=== PATIENT | female | born 1965 | race Caucasian/White ===

== ENCOUNTER 2016-12-24 11:15 | Emergency (ER) | payer OTHER ==
[~2016-12-24] VITALS: Ht 157.5 cm; Wt 63.0 kg
[~2016-12-24 11:15] MED LIST: ATIVAN1 MG PO
--- NOTE | 2016-12-24 12:01 | ED NEURO DEFICIT/STROKE ---
History of Present Illness General Chief Complaint: Upper Extremity Problem Stated Complaint: R AND L ARM WEAKNESS Source: patient Exam Limitations: no limitations Vital Signs & Intake/Output Vital Signs & Intake/Output Vital Signs Date Time Temp Pulse Resp B/P Pulse O2 O2 Flow FiO2 Ox Delivery Rate 12/24 1920 97.1 65 16 146/68 98 Room Air 12/24 1838 97.2 60 18 122/76 100 Room Air 12/24 1536 97.0 60 18 120/76 100 Room Air 12/24 1355 96.6 58 16 120/76 100 Room Air 12/24 1203 97 12/24 1126 97.6 62 18 155/89 99 Room Air Allergies Coded Allergies: Penicillins (Intermediate, RASH 12/24/16) Reconcile Medications Clonazepam 1 MG TABLET 1 TAB PO BIDP PRN ANXIETY (Reported) Gabapentin 300 MG CAPSULE 1 CAP PO QPM CERVICAL RADICULOPATHY Methylprednisolone. (Medrol) 4 MG TAB.DS.PK 1 DP PO AD neck pain 6 on day 1 then reduce by one tablet daily until gone Quetiapine Fumarate 25 MG TABLET 1 TAB PO QPM SLEEP (Reported) Sertraline HCl 100 MG TABLET 1 TAB PO DAILY DEPRESSION (Reported) Valsartan/Hydrochlorothiazide (Valsartan-Hctz 160-12.5 MG Tab) 160 MG-12.5 MG TABLET 1 TAB PO DAILY HEART (Reported) Triage Note: 51 Y/O FEMALE C/O BILATERAL ARM "ACHING AND THEYRE ASLEEP" X 1 WEEK; WORSENING OVER THE LAST FEW DAYS. PT STATES SHE IS LEFT HANDED AND HAS BEEN NOTICING SHE HAS BEEN DROPPING THINGS. PT STATES SHE SAW DR PRYOR AND HE SENT HER TO ED FOR EVAL OF "? HEAD VERSUS NECK PATHOLOGY ... CT/MRI" - PER PT, DR PRYOR SPOKE WITH DR MENDOZA. PT SPEAKING CLEARLY WITH NO DEFICITS NOTED Triage Nurses Notes Reviewed? yes Onset: Abrupt Duration: week(s): (2), getting worse Timing: recent history Severity: moderate, severe New Weakness: RLE, LUE Vision Problem? No Glaucoma? No HPI: 51-year-old female comes into emergency room with complaints of numbness and weakness to her bilateral upper extremities. Symptoms of a going on for the past 2 weeks getting progressively worse. Patient reports that the numbness starts from the left side of her upper arm and the right side of her upper arm and progresses all the way down to her fingertips. Patient reports that she's been feeling weak in her arms and inability to grasp things. Denies any headache. Denies any neck pain. Denies any trauma. Denies any prior history of this ever happening in the past. Denies any other associated symptoms. Nothing seems to make the symptoms better or worse. Patient went to see her primary care Dr. Pryor who wanted her to come to the hospital to be further evaluated. Denies any chest pain shortness of breath. Generally fatigued and tired. (TOE HERNANDEZ) Past History Travel History Traveled to [place] past 21 day No Medical History Any Pertinent Medical History? 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 No (TEO HERNANDEZ) Review of Systems Review of Systems Constitutional: Reports: no symptoms. EENTM: Reports: no symptoms. Respiratory: Reports: no symptoms. Cardiovascular: Reports: no symptoms. GI: Reports: no symptoms. Genitourinary: Reports: no symptoms. Musculoskeletal: Reports: see HPI. Skin: Reports: no symptoms. Neurological/Psychological: Reports: see HPI. Hematologic/Endocrine: Reports: no symptoms. Immunologic/Allergic: Reports: no symptoms. All Other Systems: Reviewed and Negative (TEO HERNANDEZ) Physical Exam Physical Exam General Appearance: well developed/nourished, no apparent distress, alert, awake Head: atraumatic, normal appearance Eyes: Bilateral: normal appearance, PERRL, EOMI. Ears, Nose, Throat: normal ENT inspection, moist mucous membrane, hearing grossly normal Neck: normal inspection, supple, full range of motion Respiratory: normal breath sounds, chest non-tender, no respiratory distress Cardiovascular: regular rate/rhythm Gastrointestinal: soft Back: normal inspection, normal range of motion Extremities: normal range of motion Psychiatric: awake, alert, oriented x 3 Cranial Nerves: normal hearing, normal speech, PERRL Coordination/Gait: normal gait Motor/Sensory: 3-5 strength bilateral upper extremities, patient not able to distinguish between sharp and dull on hands but able to distinguish between sharp and dull on forearm and upper arms reflexes 2+ bilaterally in upper extremities Skin: intact, normal color Core Measures CVA/TIA Diagnosis: No Severe Sepsis Present: No Septic Shock Present: No (TEO HERNANDEZ) Progress Differential Diagnosis: acute glaucoma, Johnson's Palsy, drug intoxication, electrolyte imbalance, encephalitis, hypoglycemia, intracranial Hem., intracranial mass/tumor, meningitis, migraine GUALLPA, seizure disorder, stroke, subarachnoid Hem., vertebrobasilar insuff., Lyme disease, cervical cord compression, myositis, Plan of Care: Orders Procedure Date/time Status Regular Diet 12/25 B Active Add-on Test (ER Only) 12/24 1201 Active VITAMIN D1,25 DIHYDROXY Ref$ 12/24 1200 Active VDRL 12/24 1200 Active TROPONIN LEVEL 12/24 1200 Complete LYME TITRE 12/24 1200 Active COMPREHENSIVE METABOLIC PANEL 12/24 1200 Complete CBC WITHOUT DIFFERENTIAL 12/24 1200 Complete VITAMIN B12 12/24 1200 Complete EKG 12/24 1200 Active Laboratory Tests 12/24/16 1217: Anion Gap 11, Estimated GFR > 60, BUN/Creatinine Ratio 22.2, Glucose 92, Calcium 9.6, Total Bilirubin 0.4, AST 21, ALT 21, Alkaline Phosphatase 80, Troponin I < 0.01, Total Protein 7.2, Albumin 4.3, Globulin 2.9, Albumin/Globulin Ratio 1.5, Vitamin B12 514 12/24/16 1217: Vit D 1,25-Dihyd Total Pending, 1,25 Dihydroxy Vit D2 Pending, 1,25 Dihydroxy Vit D3 Pending, CBC w Diff NO MAN DIFF REQ, RBC 4.45, MCV 85.1, MCH 28.6, RDW 12.8, MPV 10.1, Gran % 60.6, Lymphocytes % 28.9, Monocytes % 7.4, Eosinophils % 1.8, Basophils % 1.3, Absolute Granulocytes 4.6, Absolute Lymphocytes 2.2, Absolute Monocytes 0.6, Absolute Eosinophils 0.1, Absolute Basophils 0.1, PUBS MCHC 33.6, RPR Titer/FTA NONREACTIVE, Lyme Disease Antibody Pending Diagnostic Imaging: Viewed by Me: MRI. Discussed w/RAD: MRI. Radiology Impression: EXAM TYPE: MRI - MRI-CERVICAL W & W/O DAVID; MRI-HEAD W & W/ O DAVID EXAMINATION: MRI BRAIN AN MRI CERVICAL SPINE WITHOUT CONTRAST. CLINICAL INFORMATION: Bilateral upper extremity weakness. COMPARISON: None. TECHNIQUE: Routine MRI sequences of brain were obtained. Routine sagittal and axial T1 and T2 sequences of cervical spine were obtained. FINDINGS: BRAIN: There is no restricted diffusion to suggest any acute ischemia or acute demyelination. There is no intracranial flow-voids signal seen on gradient echo sequences to suggest any acute intra-axial or extra-axial bleed. There are no T2-weighted signal changes or edema on the FLAIR sequence either. The lateral ventricles are symmetrical and enlarged without ventriculomegaly. There is normal flow void signal seen in the major cerebral vasculature. CERVICAL SPINE: There is normal cervical lordosis. The vertebral heights, alignment an the disc heights are normal. The disc signal is preserved. The C2-C3, C3-C4 and C4-C5 disc levels are unremarkable. At C5-C6 disc level there is mild posterior spondylosis mildly narrowing the right neural foramina. There is no spondylolysis stenosis. The left neural foramina is patent. At C6-C7 disc level there is a left paracentral disc herniation/osteophyte complex indenting the left ventral thecal sac and ventral cord. The neural foramina however are widely patent. The C7-T1 disc level appears unremarkable. The bone marrow signal, cord signal, cord caliber and cervical-medullary junction is normal. IMPRESSION: No acute intracranial process seen. Cervical spondylosis C5-C6 disc level mildly narrowing the right neural foramina. Disc osteophyte complex C6-C7 disc level indenting the left ventral thecal and mildly indenting the ventral cord. There is no abnormality or abnormal signal cervical cord or cervical medullary junction. DICTATED BY: MARIA E SANTOS,RENE DATE/TIME DICTATED:12/24/161800 PATTERN CARRIER:VAHID DATE/ TIME TRANSCRIBED:12/24/161800 Initial ED EKG: normal intervals, normal p-waves, normal sinus rhythm, rate (59) Comments: 12/24/2016 7:23:41 PM Case was discussed with Dr. hunter , dr pryor, and dr mays. They were all involved in the patient's plan of care. The neurosurgeon reviewed the MRI of the cervical spine. Patient is going to follow-up in the office with her and started on oral steroids as well as gabapentin. Patient is going to follow-up with Dr. Pryor 2 days in the office. Case was discussed with Dr. Mays. Patient was reevaluated multiple times. Patient clinically looks well. (TEO HERNANDEZ) Departure Departure Disposition: STILL A PATIENT Condition: Stable Clinical Impression Primary Impression: Weakness of both upper extremities Secondary Impressions: Numbness of upper limb Referrals: BETTY SANTOS,THERESA PRYOR MD,MARITZA Hardwick (PCP/Family) Additional Instructions: Taking Medrol Dosepak and gabapentin as prescribed. Follow-up with Dr. Pryor in 2 days in the office. Call tomorrow to make appointment with neurosurgeon for follow-up. Return to emergency room immediately if any other concerns worsening symptoms. Please go over all results of today's visit with your primary care doctor. Contact your primary care doctor to let them know you were here in the emergency room. There may be nonspecific findings which may not be related to your visit today here in the emergency room but may require further evaluation and chronic monitoring by your primary care doctor. If you had a laceration today the chance of foreign body always remains. You should follow-up with your primary care doctor for recheck in 3-5 days for a wound check. If you had an x-ray done there is a chance that a fracture could have been missed on initial read and you should follow-up with your primary care doctor for repeat x-rays if symptoms persist. If your blood pressure was elevated here in the emergency room please have rechecked by her primary care doctor within the next 48 hours by your primary care doctor. If you were prescribed a narcotic here in the emergency room or any type of controlled substances you're not allowed to drive while taking this medication or operate any type of heavy machinery. Narcotics can make you feel lightheaded dizziness nausea and can cause constipation. 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 Thank you for choosing [facility] emergency room. Please return to the emergency room immediately if you have any other concerns worsening of symptoms. Departure Forms: Customer Survey General Discharge Information Prescriptions: Current Visit Scripts Methylprednisolone. (Medrol) 1 DP PO AD #1 DP 6 on day 1 then reduce by one tablet daily until gone Gabapentin 1 CAP PO QPM #30 CAP (TEO HERNANDEZ) PA/RAIL [employer] CLERK Co-Sign Statement Statement: ED Attending supervision documentation- [] I saw and evaluated the patient. I have also reviewed all the pertinent lab results and diagnostic results. I agree with the findings and the plan of care as documented in the PA's/[employer]IL [employer] CLERK's documentation. [X] I have reviewed the ED Record and agree with the PA's/[employer] CLERK's documentation. [] Additions or exceptions (if any) to the PAs/RAIL [employer] CLERK's note and plan are summarized below: [] (SILVESTRE SANTOS,AICHA Lennon)
[2016-12-24 12:26] LABS: ABSOLUTE BASOPHIL COUNT 0.1 /CUMM (0.0-0.2); ABSOLUTE EOSINOPHIL COUNT 0.1 /CUMM (0.0-0.7); ABSOLUTE GRANULOCYTE CT 4.6 /CUMM (1.4-6.5); ABSOLUTE LYMPH COUNT 2.2 /CUMM (1.2-3.4); ABSOLUTE MONOCYTE COUNT 0.6 /CUMM (0.10-0.60); BASOPHIL % 1.3 % (0.0-2.0); EOSINOPHIL % 1.8 % (0-5); GRANULOCYTE % 60.6 % (42.2-75.2); HEMATOCRIT 37.8 % (37-47); MEAN CORPUSCULAR HGB 28.6 PG (27.0-31.0); MEAN CORPUSCULAR HGB CONC 33.6 G/DL (33.0-37.0); MEAN CORPUSCULAR VOLUME 85.1 FL (81.0-99.0); MEAN PLATELET VOLUME 10.1 FL (7.4-10.4); PLATELET COUNT 311 /CUMM (130-400); RBC DISTRIBUTION WIDTH 12.8 % (11.5-14.5); RED BLOOD CELL CT 4.45 /CUMM (4.20-5.40); WHITE BLOOD CELL COUNT 7.6 /CUMM (4.8-10.8)
[2016-12-24] MEDS ORDERED: SERTRALINE HCL100 MG PO (12:40)
[2016-12-24] MEDS ORDERED: QUETIAPINE FUMA25 M1 PO (12:40)
[2016-12-24] MEDS ORDERED: CLONAZEPAM1 M2 PO (12:40)
[2016-12-24] MEDS ORDERED: VALSARTAN-HCTZ1 EAC1 PO (12:40)
--- NOTE | 2016-12-24 18:18 | MRI REPORT ---
EXAMINATION: MRI BRAIN AN MRI CERVICAL SPINE WITHOUT CONTRAST. CLINICAL INFORMATION: Bilateral upper extremity weakness. COMPARISON: None. TECHNIQUE: Routine MRI sequences of brain were obtained. Routine sagittal and axial T1 and T2 sequences of cervical spine were obtained. FINDINGS: BRAIN: There is no restricted diffusion to suggest any acute ischemia or acute demyelination. There is no intracranial flow-voids signal seen on gradient echo sequences to suggest any acute intra-axial or extra-axial bleed. There are no T2-weighted signal changes or edema on the FLAIR sequence either. The lateral ventricles are symmetrical and enlarged without ventriculomegaly. There is normal flow void signal seen in the major cerebral vasculature. CERVICAL SPINE: There is normal cervical lordosis. The vertebral heights, alignment an the disc heights are normal. The disc signal is preserved. The C2-C3, C3-C4 and C4-C5 disc levels are unremarkable. At C5-C6 disc level there is mild posterior spondylosis mildly narrowing the right neural foramina. There is no spondylolysis stenosis. The left neural foramina is patent. At C6-C7 disc level there is a left paracentral disc herniation/osteophyte complex indenting the left ventral thecal sac and ventral cord. The neural foramina however are widely patent. The C7-T1 disc level appears unremarkable. The bone marrow signal, cord signal, cord caliber and cervical-medullary junction is normal. IMPRESSION: No acute intracranial process seen. Cervical spondylosis C5-C6 disc level mildly narrowing the right neural foramina. Disc osteophyte complex C6-C7 disc level indenting the left ventral thecal and mildly indenting the ventral cord. There is no abnormality or abnormal signal cervical cord or cervical medullary junction.
[2016-12-24] MEDS ORDERED: GABAPENTIN300 M2 PO (19:16)
[2016-12-24] MEDS ORDERED: MEDROL4 M2 PO (19:16)
[2016-12-24 19:20] VITALS: BP 146/68
== END 2016-12-24 19:19 ==
LOC: ERH 11:15
PROVIDERS: Physician Assistant Medical
DX: R53.1 Weakness (principal); R20.0 Anesthesia of skin; I10 Essential (primary) hypertension
CPT/HCPCS: 70552; 72142; 86618; 70553; 72156; 82652; 93005; 93010; 96374; 96376; A9579

== ENCOUNTER 2017-02-02 02:33 | Inpatient (IN) | payer OTHER ==
[~2017-02-02] VITALS: Ht 157.5 cm; Wt 63.5 kg
[~2017-02-02 02:33] MED LIST changes: +CLONAZEPAM1 M2 PO; +GABAPENTIN300 M2 PO; +MEDROL4 M2 PO; +QUETIAPINE FUMA25 M1 PO; +SERTRALINE HCL100 MG PO; +VALSARTAN-HCTZ1 EAC1 PO
--- NOTE | 2017-02-02 10:33 | Operative Report ---
Operative/Inv Procedure Report Surgery Date: 02/02/17 Name of Procedure: C 5/6 6/7 acdf, use of peek interbody device, use of synthese vectra anterior plate, autograft, allograft, microscope, flouro Pre-Operative Diagnosis: cervical spondylosis with myelopathy Post-Operative Diagnosis: same Estimated Blood Loss: less than 50ml Surgeon/Change Consultant: benito HERNÁNDEZ MD,THERESA Thompson Anesthesia: general endotracheal tube Operative/Procedure Note Note: After the successful administration of general endotracheal anesthesia, all lines tubes and monitors were placed by the anesthesia team. Her head was gently extended arms taped underside to facilitate radiographic exposure the anterior cervical spine. The planned skin incision the left anterior neck under fluoroscopic guidance over the C6 vertebral body. The patient was prepped and draped in usual standard fashion and #15 blade was used to incise the left anterior neck. This was deepened to the platysma with Bovie, a sharp dissection was carried out medial to the carotid sheath lateral to the trachea and esophagus exposing the anterior cervical spine. The levels confirmed with fluoroscopic shots, we elevated the longus coli bilaterally insert self retaining tissue retractors. We entered the disc space with a #15 blade and using a combination of pituitaries curettes perform a total discectomy C5 6 and C6 7. We used a high-speed drill to drill the anterior and posterior osteophytes saving the bone for autograft. We brought the microscope in for deep dissection, under microsurgical techniques we elevated the PLL with a upgoing curette and nerve hook using Kerrison punches to remove the remainder the PLL and the osteophytes. We provided generous foraminotomies were Kerrison punch, at C6 7 there was a left-sided disc herniation which had migrated caudally behind the body of C6 was teased out with a nerve hook and removed to micro- pituitary. After satisfied with the decompressions we trialed 7 mm spacer was the appropriate size both levels. A 7 mm peek spacer was filled with morselized autograft and the minimus bone matrix putty and impacted in under fluoroscopic guidance. Motors and sensors were stable after impaction cage. We then to the Lavon pins out of the bodies of C5 and C7, a 28 mm plate was appropriate was sized and secured in place with 16 mm screws were placed under fluoroscopic guidance as well. Atenolol hardware presentation final AP and lateral fluoroscopic shots were taken screws was locked locking mechanisms motors and sensors were stable. The was copiously irrigated with irrigation through separate stab incision #7 PRAVEENA drain was left over the anterior cervical spine retraction removed and the wounds closed in layers using 2-0 Vicryl platysmal 2-0 Vicryl for deep dermis and skin was closed a running subcuticular. A dry sterile dressing was applied at the end the case all needle counts sponge and instrument correct the patient was taken to recovery room in stable condition.
--- NOTE | 2017-02-02 10:52 | Operative Report ---
Operative/Inv Procedure Report Surgery Date: 02/02/17 Name of Procedure: C56, C6 7 ACDF with Synthes peek interbody cages, Vectra anterior titanium plate and screws, autograft, DBX Pre-Operative Diagnosis: Left C6 7 herniated was pulposus, C5 6 spondylosis, stenosis Post-Operative Diagnosis: Same Estimated Blood Loss: scant Surgeon/Extension Course Coordinator: BETTY SANTOS,Nicanor White M.D. Anesthesia: general endotracheal tube Monitors: Neurophysiologic monitoring IV Fluids: 1800 mL Implants: Synthes Urine Output: 85 mL Drains: Medium PRAVEENA Specimens: C5 6, C6 7 disc material Complications: None Condition: Stable Operative Indication: Patient is a 51-year-old woman who presents with early cervical myelopathy including gait instability, paresthesias, and early weakness of the hands. Her imaging study shows a left paracentral C6 7 disc herniation associated with significant left ventral cord compression as well as compression of the left C7 root. C5 6 she has disc osteophyte complex resulting in a canal stenosis and cord compression. Light or critical radiological presentation, she now presents for surgical decompression and a treatment effusion. The risks benefits and alternatives were 20 the patient in detail. She understood and elected to proceed. Written operative consent was obtained. Operative/Procedure Note Note: Patient was taken the operating room. After appropriate identification, neurophysiologic monitoring leads were placed and baseline recordings obtained patient underwent the smooth induction of general endotracheal anesthesia without incident. A Colbert catheter was then sterilely inserted. DVT prophylaxis utilized throughout the case. Patient given 1 g of IV Vanco in preoperative prophylaxis. Patient position supine on the operating table with a bump under the shoulders and neck gently extended. Left ventral neck was widely prepped and draped usual sterile fashion using povidone solution. A left anterior transverse linear skin incision was marked beginning the midline extending to the left approximately 3 cm in a pre-existing neck fold and localized with the C-arm which was sterilely draped into the field. Skin incision was made with a 10 blade knife. Dissection was carried down through subcutaneous stitch with the Bovie. The platysma muscle was identified undermined and divided. Subplatysmal planes were created rostrally and caudally. The medial aspect of sternocleidomastoid muscle was identified. Fascia was incised and a combination of digital and blunt dissection used to medial to the sternal cleidomastoid lateral to the trachea and esophagus down to the prevertebral fascia. The carotid sheath was palpated reflected laterally under hand-held retractor. The muscle was reflected rostrally. I. To the prevertebral fascia was swept off the ventral aspect with a peanut. A small gauge spinal was placed superficially within a disc space and a lateral cervical x-ray was obtained and confirmed this to be the correct levels of C5 6 and C6 7. The disc spaces were Marked with the Bovie. Longus coli muscles were reflected bilaterally and self-retaining retractors were placed beneath the muscle. Annulotomy's of C5 6 and C6 7 were performed with a 15 blade knife and superficial discectomies perform a small straight and angled curettes and pituitary rongeurs. Renwick pins were placed in the plate to the C5 and C7 vertebral bodies in the disc spaces were gently distracted. We first focused our attention to the level of C6 7. The operating microscope was sterilely draped and brought into the field and the discectomies done under high-power visualization. Discectomy was completed with small straight and angled curettes and pituitary rongeurs. Posterior ligament was elevated and sequentially resected with Kerrisons. A significant disc herniation not to the left of midline was appreciated and gently reassessed resected with a micro- blunt nerve hook and pituitary rongeurs until excellent decompression of the underlying thecal sac was accomplished. Resected with the Kerrison proximal foramen to proximal foramen. A blunt nerve hook was used to palpate out the neuroforamen showed to be widely patent bilaterally tickly on the patient's intact left side. Patient beneath the caudal aspect of the C6 vertebral body showed no residual disc material and an excellent decompression was accomplished. The endplates were prepared for arthrodesis and all cartilaginous endplate was removed. The disc space was copiously irrigated. Meticulous hemostasis is achieved. After trials, a 7 mm peek interbody spacer was selected. This was filled with morcellated autograft from the osteophytectomy and DBX. He was gently tamped into the C6 7 disc space under direct visualization and countersunk by approximate 1 or 2 mm and its position visually confirmed and noted to be excellent. And focused our attention to C5 6. In an analogous fashion discectomy was completed down to the posterior longitudinal ligament. The ligament was elevated and resected. More bulky endplate osteophytes were noted at this level and were resected with a Kerrison punch from foramen to foramen and excellent decompression of the underlying dural sac was accomplished. With the discectomy completed, the endplates were prepared and all cartilaginous material was removed. After appropriate trials, a second 7 mm peek cage was selected, filled with morcellated autograft and DBX and gently tamped into the interspace to interspace under direct shows Tatian and countersunk. With the interbody spaces in position, the ventral aspect of vertebral bodies were prepared for placement of the plate and smooth with the drill. The 28 mm ventral Synthes Vectra plate was selected and provisionally placed in C5 to C7. The plate was gently lordosis and its position was confirmed visually and fluoroscopically noted to be excellent. The plate was then affixed the vertebral bodies in a standard fashion using a series of 6 16mm screws placed by piercing the bone with an awl placing self drilling self-tapping screws. Trajectories or slightly medial and a divergent at C5 and C7 from the disc space. Once all screws were in position, they finally tightened applying the locking mechanism. Final AP and lateral x-rays were obtained and saved and showed excellent position of the instrumentation. The wound was copiously irrigated. Meticulous hemostasis is achieved prior to closure. A medium PRAVEENA drain was placed into the wound and secured to the skin with a 2-0 nylon suture. The was closed in layers. Platysma was reapproximated interrupted 3-0 Vicryl suture. Subcutaneous tissue was closed with interrupted 3-0 Vicryl suture in the dermis and a running 4-0 Vicryl septic stitch in the skin. The wounds clean and dry. Steri-Strips and a sterile consent dressing was placed. Awakened, extubate, and taken to PACU in stable condition. She was noted to be moving all 4 extremities at the completion of the case. All sponge, needle, and instrument counts were correct at the completion of seizure 3. Neurophysiologic monitoring remained stable throughout the case. Discharge Disposition: PACU
--- NOTE | 2017-02-02 11:38 | RADIOLOGY REPORT ---
EXAMINATION: XR CERVICAL SPINE CLINICAL INFORMATION: Anterior cervical spinal decompression and fusion at C5-C6 and C6-C7. Spinal stenosis. COMPARISON: MRI scan of the cervical spine dated 12/24/2016. TECHNIQUE: Fluoroscopic equipment was dedicated to the operating room for the performance of an anterior spinal decompression and fusion. 2 spot films were acquired and are submitted for review. FLUOROSCOPY TIME: 0.2 minutes. FINDINGS: On the frontal and lateral views available, there is placement of an anterior spinal fusion plate extending from the C5 level down to C7 with intervening disc block placement. Alignment is anatomic to the extent visualized. Other postsurgical instruments and tubes are seen extending through the anterior soft tissues of the neck. IMPRESSION: Anterior spinal decompression and fusion from C4-C5 down to C7 with anatomic alignment.
--- NOTE | 2017-02-02 12:01 | Admission Core Measures ---
Admission Lab Results I reviewed the following labs: Laboratory Tests 02/02 0600 Urines Urine Test NEGATIVE Admission Meds I reviewed the following Meds: Current Medications Sig/Lorenzo Start time Last Medication Dose Stop Time Status Admin Losartan Potassium 50 MG DAILY 02/02 1000 AC (Cozaar) Quetiapine Fumarate 25 MG QPM 02/02 2200 AC (Seroquel) Sertraline HCl 100 MG DAILY 02/02 1000 AC (Zoloft) Vancomycin HCl 1,000 MG ONCE 02/02 0000 NR Sodium Chloride 250 ML 02/02 2359 (Normal Saline 0.9%) Acute Coronary Syndrome Inclusion Criteria ACS Diagnosis No Inpatient Core Measures LDL Reminder: If No, please order W/I first 24hr of stay Congestive Heart Failure Inclusion Criteria CHF Diagnosis No Cerebrovascular accident Inclusion Criteria CVA/TIA Diagnosis No Inpatient Core Measures Bedside Swallow Eval Reminder: If BSE failed, place ST order Antithrombotic Reminder: Order Antithrombotic Medication by end of day 2 Antithrombotic Reminder: Document Reason Antithrombotic Not ordered by end of day 2 AFIB/Flutter Reminder: If Present, add to problem list AFIB/Flutter Reminder: Order Anticoag Medication for pts with AFIB/Flutter Atherosclerosis Reminder: If Present, add to problem list LDL Reminder: If No, please order W/I first 24hr of stay PT Order Reminder: If No, please order Venous thromboembolism Inpatient Core Measures VTE Risk Factors: Acute medical illness, Age > 40, Surgery No [facility] VTE prophylaxis d/t No contraindications No VTE Pharm Prophylaxis d/t No contraindications Inclusion Criteria - Per Current guidelines, there needs to be overlap - treatment for the first 5 days of Warfarin therapy. - Parenteral Anticoagulation (IV or SC) needs to be - given along with Warfarin therapy. VTE Diagnosis No VTE Type NONE VTE Confirmed by (Test) NONE Problem List As ranked by this Provider includes Assessment & Plan 1. Cervical disc disorder at C5-C6 level with myelopathy 2. Cervical disc disorder at C6-C7 level with myelopathy HOME MEDS Home Med List Quetiapine Fumarate 25 MG TABLET 1 TAB PO QPM SLEEP (Reported) Sertraline HCl 100 MG TABLET 1 TAB PO DAILY DEPRESSION (Reported) Valsartan/Hydrochlorothiazide (Valsartan-Hctz 160-12.5 MG Tab) 160 MG-12.5 MG TABLET 1 TAB PO DAILY HEART (Reported)
[2017-02-02 13:46] VITALS: BP 144/90
[2017-02-02] MEDS ORDERED: PERCOCET 5-3251 EACH PO (13:52)
--- NOTE | 2017-02-02 13:57 | Patient Discharge Instructions ---
Discharge Instructions General Discharge Information You were seen/treated for: CERVICAL SPINAL STENOSIS You had these procedures: ANTERIOR CERVICAL DISCECTOMY WITH FUSION Watch for these problems: INCREASING PAIN DESPITE THE USE OF PAIN MEDICATION. INCREASING REDNESS, WARMTH, AND SWELLING. INABILITY TO SWALLOW. WORSENING NUMBNESS OR TINGLING TO ARMS AND HANDS. FEVER GREATER THAN 101.5. Do not soak the wound: Yes Other wound care: KEEP WOUND CLEAN AND DRY Diet Continue normal diet: Yes Recommended Diet: SOFT AND OR PUREED FOODS IF DIFFICULTY SWALLOWING Activity Full Activity/No Limits: No Activity Self Limited: Yes Pounds, do NOT lift more than: 5 Acute Coronary Syndrome Inclusion Criteria At DC or during hospital stay patient has or had the following: ACS DIAGNOSIS No Discharge Core Measures Meds if any: Prescribed or Continued at Discharge Meds if any: NOT Prescribed or Continued at Discharge Congestive Heart Failure Inclusion Criteria At DC or during hospital stay patient has or had the following: CHF DIAGNOSIS No Discharge Core Measures Meds if any: Prescribed or Continued at Discharge Meds if any: NOT Prescribed or Continued at Discharge Cerebrovascular accident Inclusion Criteria At DC or during hospital stay patient has or had the following: CVA/TIA Diagnosis No Discharge Core Measures Meds if any: Prescribed or Continued at Discharge Meds if any: NOT Prescribed or Continued at Discharge Venous thromboembolism Inclusion Criteria VTE Diagnosis No VTE Type NONE VTE Confirmed by (Test) NONE Discharge Core Measures - Per Current guidelines, there needs to be overlap - treatment for the first 5 days of Warfarin therapy. - If discharged on Warfarin prior to 5 days of - overlap therapy, the patient will need to be - assessed for post discharge needs including - *Post discharge parental anticoagulation - *Warfarin and/or parental anticoagulation education - *Follow up date to check INR post discharge At least 5 days overlap therapy as Inpatient No Meds if any: Prescribed or Continued at Discharge Note: Overlap Therapy is Warfarin and Anticoagulant Meds if any: NOT Prescribed or Continued at Discharge
--- NOTE | 2017-02-02 14:03 | Surgical Discharge Summary ---
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 Friend Services at Home: None What is Your Primary Language? Stateless Review of Systems: SEE H&P Hospital Course Course Attending Physician: THERESA HERNÁNDEZ MD Primary Care Physician: SANA THOMAS [facility] Course: MINI WAS ADMITTED TO THE HOSPITAL ON 02/02/2017 FOR AN ACDF. SHE TOLERATED THE PROCEDURE WELL. SHE WAS TRANSFERRED TO A GENERAL SURGICAL FLOOR. HER DIET WAS ADVANCED AND TOLERATED. SHE VOIDED SPONTANEOUSLY. HER PAIN WAS ADEQUATELY CONTROLLED WITH PO PAIN MEDICATION. SHE WAS DEEMED APPROPRIATE FOR DISCHARGE. Allergies: Coded Allergies: Penicillins (Intermediate, RASH 12/24/16) Disposition Summary Disposition Principal Diagnosis: C6-7 HNP, SPONDYLOSIS, STENOSIS Additional Diagnosis: NONE Discharge Disposition: home or self care Discharge Instructions General Discharge Information Code Status: Full Code Patient's Diet: REGULAR, ADVANCED TOLERATED, KEEP SOFT/PUREE IF DIFFICULTY SWALLOWING Patient's Activity: CERVICAL COLLAR AT ALL TIMES UNTIL OTHERWISE INDICATED BY DR. HERNÁNDEZ Follow-Up Instructions/Appts: CALL/CONTACT DR. HERNÁNDEZ TO ARRANGE/CONFIRM FOLLOW UP APPOINTMENT. SHE WOULD LIKE FOR YOU TO BE SEEN IN 1 WEEK FROM SURGERY. Medications at Discharge Discharge Medications: Continue taking these medications: Valsartan/Hydrochlorothiazide (Valsartan-Hctz 160-12.5 MG Tab) 160 MG-12.5 MG TABLET 1 Tablet ORAL DAILY Qty = 30 Comments: LAST TAKEN 02/03 AT 10AM Sertraline HCl (Sertraline HCl) 100 MG TABLET 1 Tablet ORAL DAILY Qty = 30 Comments: LAST TAKEN 02/03 AT 10AM Quetiapine Fumarate (Quetiapine Fumarate) 25 MG TABLET 1 Tablet ORAL Every night Qty = 30 Comments: LAST TAKEN 02/02/17 AT 10PM Start taking the following new medications: Oxycodone HCl/Acetaminophen (Percocet 5-325 MG Tablet) 5 MG-325 MG TABLET 1-2 Tablet ORAL Q4-6H as needed for PAIN Qty = 36 No Refills Comments: LAST TAKEN 02/03 AT 1200 Methocarbamol (Robaxin) 500 MG TABLET 1 Tablet ORAL THREE TIMES A DAY NEEDED Qty = 60 No Refills Comments: LAST TAKEN 02/03 AT 1100
--- NOTE | 2017-02-02 14:29 | PN- Neurosurgical ---
Subjective Subjective: Postop check Pt is s/p ACDF C5-7. She tolerated the procedure well and was transferred to [facility] floor in stable condition. She offers no significant complaints at this time. Pain is reasonably controlled. She still admits to constant bilateral upper extremity parasthesias, unchanged from baseline so far. she had a cup of coffee to drink, which she tolerated. no nausea or vomiting. Colbert catheter remains in place. Otherwise denies headache, dizziness, chest pain, shortness of breath, dysphagia, or odynophagia. Objective Vital Signs and I&Os Vital Signs Date Time Temp Pulse Resp B/P Pulse O2 O2 Flow FiO2 Ox Delivery Rate 02/02 1353 96 Nasal 2.0L Cannula 02/02 1346 98.0 62 20 144/90 98 Nasal 3.0L Cannula Intake & Output 02/02 1600 02/02 0800 02/02 0000 02/01 1600 02/01 0800 02/01 0000 Intake Total Output Total Balance Patient 140 lb Weight Physical Exam: Gen.: Patient is awake and alert. She is in no acute distress. She is verbalizing well. HEENT: Pupils are round and reactive to light and accommodation. EOMs are intact. Tongue is midline. No cranial nerve abnormalities appreciated. Cardiac: Regular rate and rhythm Pulmonary: Lungs are clear to auscultation bilaterally. Extremities: Anterior neck dressing is clean, dry, and intact. PRAVEENA drain contains a scant amount of serosanguineous fluid. 25 mL were previously emptied in PACU. There is no evidence of hematoma. Upper extremities contains some paresthesias, but sensation isn't sounds. Career Development Consultant strength is 4 out of 5, equal bilaterally. Assessment/Plan Assessment/Plan Patient is a 51-year-old female with a history of hypertension and depression, who is now postoperative day #0 status post ACDF of C5 through 7. She has a PRAVEENA drain in place. Plan: -Percocet or Dilaudid as needed for pain control. -Okay to discontinue Colbert. -Advance to mechanical soft diet as tolerated. Continue IV fluids until tolerating and voiding -Continue to monitor PRAVEENA output. IV antibiotics until drain is removed. Anticipate removal prior to discharge. -Alps for DVT prophylaxis. Subcutaneous heparin can start in the morning. Patient may ambulate as desired. -Home meds have been resumed. -Anticipate discharge tomorrow most likely. Core Measures/Miscellaneous Coblert Catheter Date In: 02/02/17 Still Needed? No Venous Thromboembolism VTE Risk Factors: Age > 40, Surgery VTE Contraindications: No Contraindications VTE Diagnosis: No VTE Type: NONE VTE Confirmed by (Test): NONE Beta Cachorro Is Beta Cachorro a Home Med? No Antibiotics Is Patient on Antibiotics? Yes If Yes: prophylaxis
--- NOTE | 2017-02-02 14:56 | NUR ---
PATIENT ARRIVED TO FLOOR AT 1315 VIA STETCHER. ALERT AND ORIENTED. PATIENT DRINKING TEA, DENIES ANY NAUSEA OR DIFFUCLTY SWALLOWING. VSS. DRESSING ON LEFT SIDE OF THE NECK DRY AND CLEAN, PRAVEENA DRAIN HAS SCANT BLOODY DRAINAGE AT THE MOMENT. PAIN 10/10, DILAUIDED 1 MG GIVEN. PATIENT CAME UP [facility] YEH IN, SURGICAL BEN BARRETT PAGED ABOUT POSSIBLY REMOVING THE YEH PER PATIENT REQUEST. NS RUNNING AT 80 ML/HR. AT 1400 SURGICAL BEN BARRETT CAME AND ASSESSED THE PATIENT WELL. BILAT HANDS NUMB BUT PATIENT ABLE TO FEEL MY TOUCH, PATIENT STATES IT FEELS LIKE HER HANDS "HAVE FALLEN ASLEEP" WHICH IS WHAT SHE HAS BEEN EXPERIENCING FOR TWO MONTHS NOW. POSITVE PULSES IN ALL EXTREMETIES. BED ALARM ON, CALL [facility] WITHIN REACH, FAMILY AT BEDSIDE. AWAITING ORDER TO REMOVE YEH CATHETER.
[2017-02-02 16:00] VITALS: BP 140/80
[2017-02-02 18:55] VITALS: BP 124/82
--- NOTE | 2017-02-02 19:37 | NUR ---
DURING HAND-OFF, BRUISING NOTICED ON BILAT PALM OF HAND, R<L. POSITIVE PULSES, CAPILLARY RETURN < 3 SEC. PATIENT DENIES ANY NUMBNESS/PAIN. BRUISING CAN BE ATTRIBUTED TO THE NEURO EXAM DONE IN THE PACU. BISMARK GUZMAN SURGERY.
[2017-02-02 20:58] VITALS: BP 122/82
[2017-02-02 22:40] VITALS: BP 90/60
[2017-02-03 02:13] VITALS: BP 98/60
[2017-02-03 06:59] VITALS: BP 98/64
--- NOTE | 2017-02-03 07:25 | PN- Neurosurgical ---
Subjective Subjective: Pt doing well with improved sensation LUE c/w preop. Min pain. mild sore throat. Objective Vital Signs and I&Os Vital Signs Date Time Temp Pulse Resp B/P Pulse O2 O2 Flow FiO2 Ox Delivery Rate 02/03 0659 98.1 63 20 98/64 90 Room Air 02/03 0213 98.3 62 20 98/60 90 Room Air 02/02 2240 98.3 62 20 90/60 92 Room Air 02/02 2058 97.8 65 20 122/82 93 Room Air 02/02 1855 98.0 63 20 124/82 93 Room Air 02/02 1632 63 144/92 04 1600 98.1 63 18 140/80 95 Room Air 02/02 1353 96 Nasal 2.0L Cannula 02/02 1346 98.0 62 20 144/90 98 Nasal 3.0L Cannula Intake & Output 02/03 0800 02/03 0000 02/02 1600 02/02 0800 02/02 0000 02/01 1600 Intake Total 1240 2510 250 Output Total 710 1370 Balance 530 1140 250 Intake, IV 640 1680 Intake, Oral 600 830 250 Output, 10 20 Drainage Output, Urine 700 1350 Patient 63.503 kg Weight Physical Exam: AF, VSS awake and alert voice sl hoarse, swallow intact and tolerating full po including taco flowers last night per pt incision is c,d,i flat PRAVEENA with min output since OR, 10cc last shift, scant in it now normal neuro exam bilat UE, LE ambulating on own and voiding spont Current Medications: Current Medications Sig/Lorenzo Start time Last Medication Dose Route Stop Time Status Admin Acetaminophen 650 MG Q4P PRN 02/02 1256 AC PO Bisacodyl 10 MG DAILY NEEDED PRN 02/02 1256 AC VT Diazepam 5 MG Q8P PRN 02/02 1256 AC 02/02 PO 2336 Diphenhydramine HCl 25 MG Q6P PRN 02/02 2000 AC 02/03 IV 0528 Docusate Sodium 100 MG BID 02/02 2200 AC 02/02 PO 210 Famotidine 20 MG BID 02/02 2200 AC PO Heparin Sodium 5,000 UNIT Q8 02/03 0600 AC 02/03 (Porcine) SC 0525 Hydrochlorothiazide 12.5 MG DAILY 02/03 1000 AC PO Hydromorphone HCl 1 MG Q4-6 PRN PRN 02/02 1256 AC 02/03 IV 0540 Losartan Potassium 50 MG DAILY 02/02 1000 AC 02/02 PO 1632 Ondansetron HCl 4 MG Q6P PRN 02/02 1256 AC IV Oxycodone/ 2 TAB Q4P PRN 02/02 1256 AC 02/03 Acetaminophen PO 0401 Patient Medication 1 UNIT 1000 02/03 1000 [facility] ED 02/03 1001 Patient Medication 1 UNIT 0600 02/03 0600 DC 02/03 [facility] ED 02/03 0601 0525 Patient Medication 1 UNIT 02/02 DC 02/02 [facility] ED 02/02 Patient Medication 1 UNIT ONE NR 02/02 1315 [facility] ED 02/02 1915 Patient Medication 1 UNIT ONE NR 02/02 1000 [facility] ED 02/02 1600 Quetiapine Fumarate 25 MG QPM 02/02 2200 AC 02/02 PO 2106 Ramelteon 8 MG AT BEDTIME NEED.. 02/02 1256 AC PO Sertraline HCl 100 MG DAILY 02/02 1000 AC 02/02 PO 1632 Sodium Chloride 1,000 ML Q12H 02/02 1256 AC 02/03 IV 02/03 1255 0104 Trimethobenzamide HCl 200 MG Q6P PRN 02/02 1256 AC IM Vancomycin HCl 1,000 MG 0800,02/02 AC 02/02 Sodium Chloride 250 ML IV 02/03 Vancomycin HCl 1,000 MG ONCE 02/02 0000 DC Sodium Chloride 250 ML IV 02/02 2359 Zolpidem Tartrate 2.5 MG AT BEDTIME NEED.. 02/02 1256 AC PO Results Last 48 Hours of Labs: Laboratory Tests 02/02 0600 Urines Urine Test NEGATIVE Assessment/Plan Assessment/Plan Pt POD1 s/p C5/6, 6/7 ACDF and doing well with near resolution of preop symptoms and mild neck soreness Plan: -dc PRAVEENA, abx -home today -soft mechanical diet -soft collar for dc -fu with me 2 weeks -dc instructions given - cover incision for showers, no lift more than 5lbs, no driving, no exercise, avoid NASAIDS Core Measures/Miscellaneous Colbert Catheter Date In: 02/02/17 Venous Thromboembolism VTE Risk Factors: Age > 40, Surgery VTE Contraindications: No Contraindications VTE Diagnosis: No VTE Type: NONE VTE Confirmed by (Test): NONE Beta Cachorro Is Beta Cachorro a Home Med? No Antibiotics Is Patient on Antibiotics? Yes If Yes: prophylaxis Attending MD Review Statement Attending Statement Attending MD Statement: examined this patient, discuss w/resident/PA/ROOFING LAYER, discussed with family
[2017-02-03 08:23] VITALS: BP 98/64
[2017-02-03] MEDS ORDERED: ROBAXIN500 M1 PO (11:47)
== END 2017-02-03 12:45 | DRG 473 ==
LOC: ENRESERVTM → ENRESERVDT → CANRESERV → SDA 02:33 → ENPENDDIS 02:33 → SDA 07:00 → 2NA 13:27
PROVIDERS: ADMIT Neurological Surgery
PROC: 0RG20A0 Fusion of 2 or more Cervical Vertebral Joints with Interbody Fusion Device, Anterior Approach, Anterior Column, Open Approach (ICD-10-PCS; principal; 2017-02-02)
PROC: 4A11X4G Monitoring of Peripheral Nervous Electrical Activity, Intraoperative, External Approach (ICD-10-PCS; 2017-02-02)
DX: M50.023 Cervical disc disorder at C6-C7 level with myelopathy (principal); M48.02 Spinal stenosis, cervical region; M47.892 Other spondylosis, cervical region
CPT/HCPCS: 2NASP; 36415; 72040; 81025; 88304; C1713; J0131; J1200; J1644; J2405; J3250; J3370; J7040; J7060